=== PATIENT | male | born 1985 | race Caucasian/White ===

== ENCOUNTER 2017-11-06 21:33 | Emergency (ER) | payer SELFPAY ==
[2017-11-06] MEDS ORDERED: Adacel (T-DAP) 0.5 ML VIAL ONE (21:52)
[2017-11-06] MEDS ORDERED: Bacitracin Zinc 1 Packet ONE (22:07)
--- NOTE | 2017-11-06 22:07 | RAD ---
LEFT HAND: 11/06/17 Three views. HISTORY: Fell with injury to left hand. Carpals appear intact. The metacarpals and phalanges appear intact. No fracture or dislocation identi fied. IMPRESSION: No acute abnormality. POS: DENISSE
== END 2017-11-06 22:15 | disposition home or self-care (01) ==
LOC: NAV ERS 21:33
DX: S61.211A Laceration without foreign body of left index finger without damage to nail, initial encounter (principal); K21.9 Gastro-esophageal reflux disease without esophagitis; M10.9 Gout, unspecified; F17.210 Nicotine dependence, cigarettes, uncomplicated; W22.8XXA Striking against or struck by other objects, initial encounter; Y99.0 Civilian activity done for income or pay
CPT/HCPCS: 90471; 90715

== ENCOUNTER 2018-06-17 17:00 | Emergency (ER) | payer SELFPAY ==
[2018-06-17] MEDS ORDERED: Ketorolac Tromethamine 30 MG/ML VIAL ONE (17:33)
[2018-06-17] MEDS ORDERED: Sodium Chloride 0.9% 1,000 ML ONE (17:33)
[2018-06-17 17:36] LABS: Bilirubin Negative (Negative); Blood, Urine Moderate (Negative); Clarity Clear (Clear); Glucose, Urine (Dipstick) Negative (Negative); Leukocyte Negative (Negative); Nitrite Negative (Negative); Protein, Urine (Dipstick) Negative (Neg-Trace); Urobilinogen 0.2 mg/dL (0.2-1.0); pH, Urine 5.5 (5.0-9.0)
[2018-06-17 17:47] LABS: #Basophils 0.1 thou/uL (0.0-0.2); #Eosinphils 0.6 thou/uL (0.0-0.7); #Lymphocytes 2.4 thou/uL (1.20-3.40); #Monocytes 0.7 thou/uL (0.11-0.59); #Neutrophils 6.7 thou/uL (1.40-6.50); %Basophils 1.2 % (0.0-1.0); %Eosinophils 5.7 % (0.0-10.0); %Monocytes 6.5 % (0.0-10.0); %Neutrophils 63.6 % (42.0-75.0); Hemoglobin 16.1 g/dL (14.0-18.0); Mean Corpuscular HGB CONC 32.1 g/dL (32.0-36.0); Mean Corpuscular Volume 87.4 fL (78.0-98.0); Mean Platelet Volume 7.8 fL (7.4-10.4); Platelet Count 214 thou/uL (130-400); RBC Distribution Width 12.2 % (11.5-14.5); Red Blood Cell (RBC) Count 5.73 mill/uL (4.70-6.10); White Blood Cell (WBC) Count 10.6 thou/uL (4.8-10.8)
[2018-06-17 17:49] LABS: Specific Gravity, Urine 1.022 (1.002-1.036)
[2018-06-17 17:50] LABS: Crystals/HPF 1+ CA OXALATE HPF (Negative)
[2018-06-17 17:59] LABS: ALT (SGPT) 24 U/L (8-55); AST (SGOT) 18 U/L (5-34); Albumin 4.4 g/dL (3.5-5.0); Alkaline Phosphatase 59 U/L (40-150); Anion Gap 13 mmol/L (10-20); BUN (Urea Nitrogen) 22 mg/dL (8.9-20.6); Bilirubin, Total 0.5 mg/dL (0.2-1.2); Calc. Creatinine Clearance 0 mL/min (70-130); Calcium 9.7 mg/dL (7.8-10.44); Carbon Dioxide 21 mmol/L (22-29); Chloride 110 mmol/L (98-107); Estimated GFR-MDRD Greater than 90; Glucose 97 mg/dL (70-105); Potassium 3.9 mmol/L (3.5-5.1); Protein, Total 7.4 g/dL (6.0-8.3); Sodium 140 mmol/L (136-145)
--- NOTE | 2018-06-17 19:02 | CT ---
CT OF THE ABDOMEN AND PELVIS WITHOUT CONTRAST: 06/17/18 INDICATION: Right lower quadrant abdominal pain. COMPARISON: Prior CT of the abdomen and pelvis dated 11/17/13. FINDINGS: There is a small sub 4 mm pulmonary nodule in the left lower lobe that was present in 2013 and is ermelinda ign. There is a calcified granuloma within the liver. Unopacified pancreas and adrenal glands are unremarkable. Unopacified spleen is unremarkable. There i s slight prominence of the right renal collecting system. There is a 2 mm stone within the posterior aspect of the uterine bladder. There is a tiny suspected stone measuring 1 to 2 mm within the left mi d kidney. No free fluid or enlarged lymph nodes are evident. The rectum and descending colon is largely decompressed. There is a normal appendix in the right lower quadrant. Small bowel is of normal caliber. No definite acute osseous abnormality is evident. IMPRESSION: 1. Findings likely reflect sequela of recently passed stone. There is a 2 mm stone within the po sterior aspect of the uterine bladder. There is slight prominence of the right renal pelvis and right renal collecting system. 2. Left nephrolithiasis. 3. Findings of prior granulomatous disease. 4. Benign sub 4 mm pulmonary nodule left lower lobe. POS: BH
== END 2018-06-17 18:24 | disposition home or self-care (01) ==
LOC: NAV ERS 17:00
DX: N20.0 Calculus of kidney (principal); M10.9 Gout, unspecified; F17.210 Nicotine dependence, cigarettes, uncomplicated
CPT/HCPCS: 74176; 80053; 81003; 81015; 85025; 96361; 96374; J1885; J7050

== ENCOUNTER 2020-02-02 17:29 | Emergency (ER) | payer BC, SELFPAY ==
[2020-02-02] MEDS ORDERED: Meclizine HCl 25 MG TAB ONE (18:12)
== END 2020-02-02 18:16 | disposition home or self-care (01) ==
LOC: NAV ERS 17:29
DX: K29.00 Acute gastritis without bleeding (principal); M10.9 Gout, unspecified; F17.210 Nicotine dependence, cigarettes, uncomplicated
CPT/HCPCS: 36416; 93005

== ENCOUNTER 2020-05-16 04:02 | Emergency (ER) | payer BC, OTHER ==
[2020-05-16 17:45] LABS: SARS-CoV-2 MS2 Positive; SARS-CoV-2 N Gene Negative; SARS-CoV-2 S Gene Negative; SARS-CoV-2 by NAA Not Detected (NotDetected); SARS-CoV-2 orf1ab Negative
== END 2020-05-16 04:34 | disposition home or self-care (01) ==
LOC: NAV ERS 04:02
DX: J00 Acute nasopharyngitis [common cold] (principal); Z20.828 Contact with and (suspected) exposure to other viral communicable diseases; F17.210 Nicotine dependence, cigarettes, uncomplicated
CPT/HCPCS: 87635; 99283; U0003